=== PATIENT | female | born 1995 | race Caucasian/White ===

== ENCOUNTER 2017-06-04 20:37 | Emergency (ER) | payer MEDICAID ==
[~2017-06-04] VITALS: Ht 149.9 cm; Wt 60.3 kg
[2017-06-04 20:55] VITALS: BP 110/63
== END 2017-06-04 21:37 | disposition home or self-care (01) ==
LOC: ER 20:42
DX: L60.0 Ingrowing nail (principal); E11.649 Type 2 diabetes mellitus with hypoglycemia without coma
CPT/HCPCS: 11730; 99284; A4606; Z7610